=== PATIENT | male | born 2005 | race Two or more races ===

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

== ENCOUNTER 2025-01-16 20:12 | Emergency (ER) | payer MEDICAID ==
[~2025-01-16] VITALS: Ht 175.3 cm; Wt 81.3 kg
[2025-01-16 21:03] LABS: Hematocrit 44.8 % (41.0-53.0); Hemoglobin 16.0 g/dL (13.5-17.5); Mean Corpuscular Hemoglobin 32.4 pg (28.0-32.0); Mean Corpuscular Volume 90.3 fL (80.0-100.0); Nucleated Red Blood Cells % 0.0 %
--- NOTE | 2025-01-16 21:03 | ED.PDOC ---
History of Present Illness HPI Comments 19-year-old male who comes in with chief complaint of left-sided chest pain since 1:00 a.m. yesterday. The patient states that the pain was a 7/10 it is associated with some mild shortness for breath as well as nausea and vomiting. The patient has no history of this in the past. 911 was called and the patient was transported to our facility. Chief Complaint: Chest Pain Time Seen by MD: 20:18 Primary Care Provider: MARSHA Velazquez Notes: Nurses Notes, International Logistics Analyst Notes, Medications, Allergies (No allergies to medication) Allergies: Coded Allergies: NO KNOWN ALLERGIES (Unverified , 07/22/14) Information Source: Patient, Emergency Med Personnel Mode of Arrival: EMS Severity: Moderate Timing: Hours (Symptoms started at 1:00 a.m. yesterday afternoon) Duration: Since onset Prehospital treatment: 12 Lead EKG, Clinical Trial Specialist Location: Chest pain on the left side and nonradiating Associated signs and symptoms Associated shortness for breath with nausea and vomiting Past Medical History PAST MEDICAL HISTORY: Denies Surgical History: Denies all surgeries Family History Family History: Family hx of Cancer Social History Smoker: Non-Smoker Alcohol: Occasionally Drugs: Denies Drug Use Lives In: Home Constitutional: denies: chills, diaphoresis, fatigue, fever, malaise, sweats, weakness, others EENTM: denies: blurred vision, double vision, ear bleeding, ear discharge, ear drainage, ear pain, ear ringing, eye pain, eye redness, hearing loss, mouth pain, mouth swelling, nasal discharge, nose bleeding, nose congestion, nose pain, photophobia, tearing, throat pain, throat swelling, voice changes, others Respiratory: reports: shortness of breath; denies: cough, hemoptysis, orthopnea, SOB at rest, SOB with excertion, stridor, wheezing, others Cardiovascular: reports: chest pain; denies: dizzy spells, diaphoresis, Dyspnea on exertion, edema, irregular heart beat, left arm pain, lightheadedness, palpitations, PND, syncope, others Gastrointestinal: reports: nausea, vomiting; denies: abdomen distended, abdominal pain, blood streaked bowels, constipated, diarrhea, dysphagia, difficulty swallowing, hematemesis, melena, poor appetite, poor fluid intake, rectal bleeding, rectal pain, others Genitourinary: denies: burning, dysuria, flank pain, frequency, hematuria, incontinence, penile discharge, penile sore, pain, testicle pain, testicle swelling, urgency, others Neurological: denies: dizziness, fainting, headache, left sided numbness, left sided weakness, numbness, paresthesia, pre-existing deficit, right sided numb ness, right sided weakness, seizure, speech problems, tingling, tremors, weakness, others Musculoskeletal: denies: back pain, gout, joint pain, joint swelling, muscle pain, muscle stiffness, neck pain, others Integumetry: denies: bruises, change in color, change in hair/nails, dryness, laceration, lesions, lumps, rash, wounds, others Allergic/Immunocompromised: denies: Difficulty Healing, Frequent Infections, Hives, Itching, others Hematologic/Lymphatic: denies: anemia, blood clots, easy bleeding, easy bruising, swollen glands, others Endocrine: denies: excessive hunger, excessive sweating, excessive thirst, excessive urination, flushing, intolerance to cold, intolerance to heat, unexplained weight gain, unexplained weight loss, others Psychiatric: denies: anxiety, bipolar disorder, depression, hopeless, panic disorder, schizophrenia, sleepless, suicidal, others Physical Exam General Appearance: Mild Distress HEENT: Normal ENT Inspection, Pharynx Normal, TMs Normal Neck: Full Range of Motion, Non-Tender, Normal, Normal Inspection Respiratory: Chest Non-Tender, Lungs Clear, No Accessory Muscle Use, No Respiratory Distress, Normal Breath Sounds Cardiovascular: No Edema, No JVD, No Murmur, No Gallop, Normal Peripheral Pulses, Regular Rate/Rhythm Breast Exam: Deferred Gastrointestinal: No Organomegaly, Non Tender, No Pulsatile Mass, Normal Bowel Sounds, Soft Genitalia: Deferred Pelvic: Deferred Rectal: Deferred Extremities: No calf tenderness, Normal capillary refill, Normal inspection, Normal range of motion, Non-tender, No pedal edema Musculoskeletal : Apperance: Normal Neurologic: Alert, slitter scorer II-XII nml as Tested, No Motor Deficits, Normal Affect, Normal Mood, No Sensory Deficits Cerebellar Function: Normal Reflexes: Normal Skin: Dry, Normal Color, Warm Lymphatic: No Adenopathy Was a procedure done? Was a procedure done?: No EKG EKG : Pulse Rate (adult): 95 [place]: Normal Cardiac Rhythm: NSR Block: None ST: Nonsp Differential Dx Considerations may include: ACS, [place], generalized weakness, electrolyte imbalance X-Ray, Labs, Meds, VS Vital Signs Date Time Temp Pulse Resp B/P (MAP) Pulse Ox O2 Delivery O2 Flow Rate FiO2 01/16/25 21:03 95 01/16/25 20:20 98.3 88 16 135/81 99 98.3 01/16/25 20:16 95 Lab Test 01/16/25 21:32 01/16/25 20:30 Range/Units Troponin I High Sensitivity Pending < 3 L </=54 ng/L White Blood Count 6.5 4.4-10.8 10^3/uL Red Blood Count 4.96 4.5-5.90 10^6/uL Hemoglobin 16.0 13.5-17.5 g/dL Hematocrit 44.8 41.0-53.0 % Mean Corpuscular Volume 90.3 80.0-100.0 fL Mean Corpuscular Hemoglobin 32.4 H 28.0-32.0 pg Mean Corpuscular Hemoglobin Concent 35.8 32.0-36.0 g/dL Red Cell Distribution Width 13.6 11.8-14.3 % Platelet Count 251 140-450 10^3/uL Mean Platelet Volume 8.1 6.9-10.8 fL Neutrophils (%) (Auto) 61.2 37.0-80.0 % Lymphocytes (%) (Auto) 27.8 10.0-50.0 % Monocytes (%) (Auto) 9.2 0.0-12.0 % Eosinophils (%) (Auto) 1.3 0.0-7.0 % Basophils (%) (Auto) 0.5 0.0-2.0 % Neutrophils # (Auto) 4.0 1.6-8.6 10 ^3/uL Lymphocytes # (Auto) 1.8 0.4-5.4 10 ^3/uL Monocytes # (Auto) 0.6 0-1.3 10 ^3/uL Eosinophils # (Auto) 0.1 0-0.8 10 ^3/uL Basophils # (Auto) 0 0-0.2 10 ^3/uL Nucleated Red Blood Cells 0.0 % Sodium Level 143 136-145 mmol/L Potassium Level 3.9 3.5-5.1 mmol/L Chloride Level 102 98-107 mmol/L Carbon Dioxide Level 32 H 20-31 mmol/L Anion Gap 9 5-15 Blood Urea Nitrogen 8 L 9-23 mg/dL Creatinine 1.48 H 0.700-1.30 mg/dL Glomerular Filtration Rate Calc 69 >90 mL/min BUN/Creatinine Ratio 5.4 L 10.0-20.0 Serum Glucose 91 74-106 mg/dL Calcium Level 9.9 8.7-10.4 mg/dL The patient's CBC is within normal limits The chemistry panel is within normal limits except for creatinine of 1.48 The patient's troponin level is negative At this time, the chest x-ray is negative The patient will be discharged and will follow up with the primary care doctor The patient will return to the emergency department's condition worsens We do not feel that this patient's chest pain is cardiac in nature at this time Images Reviewed?: Images reviewed and evaluated by me Time of 1ST Reevaluation: 21:02 Reevaluation 1ST: Unchanged Patient Education/Counseling: Diagnosis, Treatment, Prognosis, Need For Follow Up Family Education/Counseling: No Family Present SEPSIS Sepsis Screen Date sepsis recognized/suspect: Jan 16, 2025 Time Sepsis recognized/suspect: 2212 Recent Procedure: No On Antibiotic Therapy: No Respiratory Rate >20: No Heart Rate >90: No Temp<36 C (96.8 F) or >38.3 C: No SBP <90 or MAP <65 mmHG: No New Acute Mental Status Change: No Is the patient on CPAP, BIPAP,: No Physician Orders Chest Portable (01/16/25 20:19) Electrocardigram (01/16/25 20:19) Troponin-I Hs (01/16/25 21:19) Troponin-I Hs (01/16/25 23:19) Electrocardigram (01/16/25 21:19) Electrocardigram (01/16/25 23:19) Vital Signs Date Time Temp Pulse Resp B/P (MAP) Pulse Ox O2 Delivery O2 Flow Rate FiO2 01/16/25 21:03 95 01/16/25 20:20 98.3 88 16 135/81 99 98.3 01/16/25 20:16 95 Laboratory Tests Test 01/16/25 20:30 White Blood Count 6.5 10^3/uL (4.4-10.8) Departure 1 Departure Time of Disposition: 22:08 Impression: Primary Impression: Atypical chest pain Disposition: 01 HOME / SELF CARE / HOMELESS Condition: Fair Discharged With: Self Critical Care Note Critical Care Time?: No Stability Stability form required: No Heart Score Heart Score: Heart Score Response (Comments) Value History Slightly Suspicious 0 EKG Normal 0 Age <45 0 Risk Factors 1 or 2 risk factors 1 Troponin Normal limit 0 Total 1 QUIN JEREZ MD Jan 16, 2025 21:03
[2025-01-16 21:11] LABS: Chloride 102 mmol/L (98-107); Potassium 3.9 mmol/L (3.5-5.1)
[2025-01-16 21:12] LABS: Calcium 9.9 mg/dL (8.7-10.4)
[2025-01-16 21:17] LABS: BUN/Creatinine Ratio 5.4 (10.0-20.0); Glucose 91 mg/dL (74-106)
[2025-01-16 21:19] LABS: Blood Urea Nitrogen 8 mg/dL (9-23); Carbon Dioxide 32 mmol/L (20-31)
--- NOTE | 2025-01-16 21:28 | DVH ---
CHEST RADIOGRAPH Indication: cp Technique: Single frontal view of the chest was obtained COMPARISON: None FINDINGS: Lines and Tubes: None Lungs: Clear Pleura: No effusion. No pneumothorax. Cardiomediastinal contours: Unremarkable Bones: Unremarkable IMPRESSION: No acute disease.
[2025-01-16 21:35] LABS: Anion Gap 9 (5-15); Sodium 143 mmol/L (136-145)
[2025-01-16 22:18] VITALS: BP 122/66; PULSE 91; RESP 18; TEMP 98.4; O2SAT 96
--- NOTE | 2025-01-18 07:36 | ECG ---
[facility] Test Date: 2025-01-16 Test Time: 20:16:01 Pat Name: CATHERINE HOUSTON Department: ED Room: Gender: M Junior Accountant: : 2005 Requested By: QUIN JEREZ Order Number: [id number] Reading MD: Juan Ramon Argueta Measurements Intervals [place] Rate: 95 P: 66 AK: 147 QRS: 57 QRSD: 88 T: 30 QT: 330 QTc: 415 Interpretive Statements Sinus rhythm Electronically Signed On 01-19-2025 17:44:31 PST by Juan Ramon Argueta Please click the below link to view image of tracing.
--- NOTE | 2025-01-18 07:42 | ECG ---
[facility] Test Date: 2025-01-16 Test Time: 21:51:43 Pat Name: CATHERINE HOUSTON Department: ED Room: Gender: M Web Services Professional: : 2005 Requested By: QUIN JEREZ Order Number: [id number] Reading MD: Juan Ramon Argueta Measurements Intervals [place] Rate: 90 P: 63 SD: 148 QRS: 79 QRSD: 86 T: 29 QT: 334 QTc: 409 Interpretive Statements Sinus rhythm Baseline wander in lead(s) V5 Electronically Signed On 01-19-2025 17:44:45 PST by Juan Ramon Argueta Please click the below link to view image of tracing.
== END 2025-01-16 22:19 | disposition home or self-care (01) ==
LOC: EDUNIT# 20:12 → EDBD 20:12 → ER 20:12
DX: R07.89 Other chest pain (principal); Z79.899 Other long term (current) drug therapy
CPT/HCPCS: 36415; 71045; 80048; 84484; 85025; 93005